=== PATIENT | female | born 1950 | race Hispanic/Latino ===

== ENCOUNTER → 2017-07-23 | Outpatient (CLI) | payer OTHER ==
[~2017-07-23] MED LIST: ACET-2743 PO; CEPH-578 PO; GLIP10TA9 PO; METF-527 PO; OMEG1CAP31 PO; TAMS0.4C32 PO
== END | disposition home or self-care (01) ==
LOC: OIH 15:08
PROVIDERS: ATTEND Family Medicine
DX: J44.1 Chronic obstructive pulmonary disease with (acute) exacerbation (principal)
CPT/HCPCS: 71046

== ENCOUNTER → 2017-10-27 | Outpatient (CLI) | payer OTHER | END | disposition home or self-care (01) | LOC: OIH 15:27 | PROVIDERS: ATTEND Family Medicine | DX: M17.11 Unilateral primary osteoarthritis, right knee (principal) | CPT/HCPCS: 73562 ==

== ENCOUNTER → 2019-04-04 | Outpatient (CLI) | payer OTHER | END | disposition home or self-care (01) | LOC: RAH 08:45 | PROVIDERS: ATTEND Family Medicine | DX: Z12.31 Encounter for screening mammogram for malignant neoplasm of breast (principal); I07.1 Rheumatic tricuspid insufficiency; I25.2 Old myocardial infarction | CPT/HCPCS: 77067; 93306 ==

== ENCOUNTER → 2019-06-07 | Outpatient (CLI) | payer OTHER | END | disposition home or self-care (01) | LOC: OIH 09:16 | PROVIDERS: ATTEND Family Medicine | DX: S20.211A Contusion of right front wall of thorax, initial encounter (principal); M19.011 Primary osteoarthritis, right shoulder; X58.XXXA Exposure to other specified factors, initial encounter; Y93.89 Activity, other specified; Y92.89 Other specified places as the place of occurrence of the external cause; Y99.8 Other external cause status | CPT/HCPCS: 71046; 73030 ==

== ENCOUNTER → 2020-11-23 | Outpatient (CLI) | payer OTHER | END | disposition home or self-care (01) | LOC: RAH 09:20 | PROVIDERS: ATTEND Family Medicine | DX: Z12.31 Encounter for screening mammogram for malignant neoplasm of breast (principal) | CPT/HCPCS: 77067 ==

== ENCOUNTER 2021-04-03 17:34 | Inpatient (IN) | payer OTHER ==
[~2021-04-03] VITALS: Ht 154.9 cm; Wt 65.9 kg
[2021-04-03] MEDS ORDERED: MORPHINE 4 MG SYG IV STA (19:28)
[2021-04-03] MEDS ORDERED: DEXTROSE 50%-WATER 50 ML DISP.SYRIN IV PRN (21:00)
[2021-04-03] MEDS ORDERED: NITROGLYCERIN 0.4 MG SL TAB SL PRN (21:00)
[2021-04-03] MEDS ORDERED: ACETAMINOPHEN 325 MG TAB PO PRN ×2 (21:00)
[2021-04-03] MEDS ORDERED: LABETALOL 20MG SYG IV PRN (21:00)
[2021-04-03] MEDS ORDERED: MORPHINE 2 MG SYG IV PRN (21:00)
[2021-04-03] MEDS ORDERED: ZOLPIDEM TARTRATE 5 MG TAB PO PRN (21:00)
[2021-04-03] MEDS ORDERED: GLUCAGON 1MG KIT 1 MG ML IM PRN (21:00)
[2021-04-03] MEDS ORDERED: ONDANSETRON 4MG INJ IV PRN (21:00)
[2021-04-03 21:46] LABS: BASOPHILS % (AUTO) 0.4 % (0.0-5.0); EOSINOPHILS % (AUTO) 0.3 % (0.0-8.0); HEMATOCRIT 30.4 % (36-48); LYMPHOCYTES % (AUTO) 14.8 % (21.0-51.0); MEAN CORPUSCULAR HEMOGLOBIN 29.3 pg (27.0-33.0); MEAN CORPUSCULAR HGB CONC 33.9 g/dL (32.0-36.0); MEAN CORPUSCULAR VOLUME 86.6 fL (79-99); MONOCYTES % (AUTO) 7.3 % (3.0-13.0); NEUTROPHILS % (AUTO) 76.4 % (40.0-77.0); PLATELET COUNT (AUTO) 175 K/uL (130-400); RED BLOOD CELL COUNT(AUTO) 3.51 MIL/uL (4.00-5.50); RED CELL DISTRIBUTION WIDTH 13.2 % (11.0-15.5); WHITE BLOOD COUNT (AUTO) 12.4 K/uL (4.8-10.8)
[2021-04-03 22:00] LABS: INR 0.97 (0.85-1.15); PROTHROMBIN TIME 10.6 SEC (9.6-11.6)
[2021-04-03 22:03] LABS: B-TYPE NATRIURETIC PEPTIDE 50 pg/mL (0-100); POTASSIUM 5.5 mmol/L (3.5-5.1)
[2021-04-03 22:07] LABS: BILIRUBIN,TOTAL 0.3 mg/dL (0.2-1.0); TOTAL PROTEIN, SERUM 6.3 g/dL (6.0-8.3)
[2021-04-03 22:29] VITALS: BP 139/64
[2021-04-04] MEDS: HYDROMORPHONE 0.5 MG SYG (0.5MG/0.5ML) IV PRN ×3 (03:23→16:29)
[2021-04-04] MEDS: 0.9%NACL 1000ML 1,000 ML IV SCH ×2 (03:24→10:20)
[2021-04-04 04:25] VITALS: BP 131/62
[2021-04-04 08:12] VITALS: BP 126/50
[2021-04-04] MEDS: FAMOTIDINE 20MG VIAL IV SCH (08:52)
[2021-04-04 10:01] LABS: HEMATOCRIT 34.1 % (36-48); MEAN CORPUSCULAR HEMOGLOBIN 29.4 pg (27.0-33.0); MEAN CORPUSCULAR HGB CONC 33.1 g/dL (32.0-36.0); MEAN CORPUSCULAR VOLUME 88.8 fL (79-99); PLATELET COUNT (AUTO) 174 K/uL (130-400); RED BLOOD CELL COUNT(AUTO) 3.84 MIL/uL (4.00-5.50); RED CELL DISTRIBUTION WIDTH 13.3 % (11.0-15.5)
[2021-04-04 10:12] LABS: CREATININE 0.6 mg/dL (0.5-1.5); POTASSIUM 4.7 mmol/L (3.5-5.1)
[2021-04-04 10:31] LABS: LYMPHOCYTES % (MANUAL) 27 % (22-44); MONOCYTES % (MANUAL) 4 % (2-9); SEGMENTED NEUTROPHILS % 69 % (40-70)
[2021-04-04 10:32] LABS: MAN.DIFF COMMENT-IMPRESSION MANUAL DIFFERENTIAL; PLATELET MORPHOLOGY COMMENT ADEQUATE
[2021-04-04 11:06] VITALS: BP 130/53
[2021-04-04 11:17] LABS: APPEARANCE,URINE Clear (CLEAR); BILIRUBIN,URINE Negative (NEGATIVE); COLOR,URINE Yellow (YELLOW); GLUCOSE, URINE (UA) Negative (NEGATIVE); KETONES,URINE Negative (NEGATIVE); LEUKOCYTE ESTERASE ,URINE Trace (NEGATIVE); NITRATE,URINE Positive (NEGATIVE); OCCULT BLOOD,URINE Negative (NEGATIVE); PROTEIN,URINE Negative (NEGATIVE)
[2021-04-04 11:37] LABS: BACTERIA,URINE Many /HPF (None Seen); RBC,URINE 0-1 /HPF (0-1); SQUAMOUS EPITHELIAL CELL,UR Rare /HPF (0-2); WBC,URINE 0-1 /HPF (0-1)
[2021-04-04] MEDS: CEFTRIAXONE 1G VIAL IVP SCH (16:29)
[2021-04-04 16:31] VITALS: BP 150/94
[2021-04-04 19:00] VITALS: BP 127/58
[2021-04-04] MEDS: SIMVASTATIN 20 MG TABLET PO SCH (20:44)
[2021-04-04] MEDS ORDERED: INSU200I4 SQ (20:49)
[2021-04-04] MEDS ORDERED: SIMV5TAB58 PO (20:49)
[2021-04-04] MEDS ORDERED: LISI5TAB21 PO (20:49)
[2021-04-04] MEDS ORDERED: OXYB10TA30 PO (20:49)
[2021-04-05] VITALS (7 sets, daily range): BP systolic 110–138; BP diastolic 57–71
[2021-04-05 03:44] LABS: HEMATOCRIT 35.5 % (36-48); MEAN CORPUSCULAR HEMOGLOBIN 29.2 pg (27.0-33.0); MEAN CORPUSCULAR HGB CONC 33.5 g/dL (32.0-36.0); MEAN CORPUSCULAR VOLUME 87.2 fL (79-99); RED BLOOD CELL COUNT(AUTO) 4.07 MIL/uL (4.00-5.50); RED CELL DISTRIBUTION WIDTH 12.8 % (11.0-15.5); WHITE BLOOD COUNT (AUTO) 7.9 K/uL (4.8-10.8)
[2021-04-05 03:56] LABS: INR 0.99 (0.85-1.15); PROTHROMBIN TIME 10.8 SEC (9.6-11.6)
[2021-04-05 03:57] LABS: PARTIAL THROMBOPLASTIN TIME 28.8 SEC (26.3-35.5)
[2021-04-05 03:59] LABS: CREATININE 0.6 mg/dL (0.5-1.5); POTASSIUM 4.6 mmol/L (3.5-5.1)
[2021-04-05] MEDS: HYDROMORPHONE 0.5 MG SYG (0.5MG/0.5ML) IV PRN ×4 (05:32→21:16)
[2021-04-05] MEDS: LISINOPRIL 10 MG TABLET PO SCH (09:00)
[2021-04-05] MEDS: 0.9%NACL 1000ML 1,000 ML IV SCH ×2 (09:25→13:00)
[2021-04-05] MEDS: FAMOTIDINE 20MG VIAL IV SCH (09:25)
[2021-04-05] MEDS: CEFTRIAXONE 1G VIAL IVP SCH (16:01)
[2021-04-05] MEDS ORDERED: GLUCAGON 1MG KIT 1 MG ML IM PRN (17:00)
[2021-04-05] MEDS ORDERED: DEXTROSE 50%-WATER 50 ML DISP.SYRIN IV PRN (17:00)
[2021-04-05] MEDS: INSULIN HUMULIN R 100 UNIT/ML 3ML SQ SCH (19:53)
[2021-04-05] MEDS: SIMVASTATIN 20 MG TABLET PO SCH (19:53)
[2021-04-06] VITALS (28 sets, daily range): BP systolic 91–156; BP diastolic 45–79
[2021-04-06] MEDS: 0.9%NACL 1000ML 1,000 ML IV SCH ×3 (00:22→16:28)
[2021-04-06] MEDS: LISINOPRIL 10 MG TABLET PO SCH (03:25)
[2021-04-06] MEDS: HYDROMORPHONE 0.5 MG SYG (0.5MG/0.5ML) IV PRN (04:21)
[2021-04-06 05:18] LABS: HEMATOCRIT 36.3 % (36-48); MEAN CORPUSCULAR HEMOGLOBIN 29.3 pg (27.0-33.0); MEAN CORPUSCULAR HGB CONC 33.6 g/dL (32.0-36.0); MEAN CORPUSCULAR VOLUME 87.1 fL (79-99); RED BLOOD CELL COUNT(AUTO) 4.17 MIL/uL (4.00-5.50); RED CELL DISTRIBUTION WIDTH 12.8 % (11.0-15.5); WHITE BLOOD COUNT (AUTO) 9.7 K/uL (4.8-10.8)
[2021-04-06 05:34] LABS: CREATININE 0.6 mg/dL (0.5-1.5); POTASSIUM 4.4 mmol/L (3.5-5.1)
[2021-04-06] MEDS: INSULIN HUMULIN R 100 UNIT/ML 3ML SQ SCH ×4 (06:05→19:46)
[2021-04-06] MEDS: FAMOTIDINE 20MG VIAL IV SCH (09:00)
[2021-04-06] MEDS: CEFAZOLIN SODIUM 1 GM VIAL ONE ×2 (10:10→10:35)
[2021-04-06] MEDS ORDERED: SUCCINYLCHOLINE CHLORIDE 20 MG/ML 10 ML VIAL ONE (10:14)
[2021-04-06] MEDS ORDERED: LIDOCAINE PF 100MG/5ML (2%) SYRINGE 5ML ONE (10:14)
[2021-04-06] MEDS ORDERED: PROPOFOL 10 MG/ML 20ML VIAL IV ONE (10:14)
[2021-04-06] MEDS ORDERED: KETAMINE 50MG/ML SYRINGE 50 MG/ML DISP.SYRIN IV ONE (10:17)
[2021-04-06] MEDS ORDERED: ROCURONIUM 10MG/1ML SYR 10 MG/ML ML ONE (10:26)
[2021-04-06] MEDS ORDERED: VANCOMYCIN 1G VIAL ONE (10:51)
[2021-04-06] MEDS ORDERED: TRANEXAMIC ACID 1000MG/10ML ONE (10:51)
[2021-04-06] MEDS ORDERED: GLYCOPYRROLATE 1 MG/5 ML SYRINGE ONE (11:23)
[2021-04-06] MEDS ORDERED: NEOSTIGMINE 5MG/5ML SYR IV ONE (11:23)
[2021-04-06] MEDS ORDERED: ONDANSETRON 4MG INJ ONE (11:24)
[2021-04-06] MEDS ORDERED: FERROUS FUMARATE 324 MG TABLET PO PRN (12:00)
[2021-04-06] MEDS ORDERED: DiphenhydrAMINE HCL 50 MG/ML VIAL IVP PRN (12:00)
[2021-04-06] MEDS ORDERED: POTASSIUM CHLORIDE 20MEQ/100ML 100 ML IV PRN (12:00)
[2021-04-06] MEDS ORDERED: MEPERIDINE-PF 25 MG/ML SYG ONE ×2 (12:07→12:30)
[2021-04-06] MEDS: CEFTRIAXONE 1G VIAL IVP SCH (16:28)
[2021-04-06] MEDS: CEFAZOLIN SODIUM 1 GM VIAL IVP SCH ×2 (16:28→23:38)
[2021-04-06] MEDS: KETOROLAC 15MG/ML VIAL (15MG/ML) IV PRN (17:21)
[2021-04-06] MEDS: SIMVASTATIN 20 MG TABLET PO SCH (19:45)
[2021-04-06] MEDS: ACETAMINOPHEN WITH CODEINE 1 TAB TAB PO PRN (19:45)
[2021-04-06] MEDS: LACTULOSE 20 GM/30 ML UDCUP PO PRN (23:38)
[2021-04-07] MEDS: KETOROLAC 15MG/ML VIAL (15MG/ML) IV PRN ×2 (02:05→13:05)
[2021-04-07 03:29] VITALS: BP 127/64
[2021-04-07] MEDS: LISINOPRIL 10 MG TABLET PO SCH (05:17)
[2021-04-07] MEDS: 0.9%NACL 1000ML 1,000 ML IV SCH (05:17)
[2021-04-07] MEDS: INSULIN HUMULIN R 100 UNIT/ML 3ML SQ SCH ×4 (05:22→21:07)
[2021-04-07 05:37] LABS: HEMATOCRIT 29.8 % (36-48); MEAN CORPUSCULAR HEMOGLOBIN 29.6 pg (27.0-33.0); MEAN CORPUSCULAR HGB CONC 32.6 g/dL (32.0-36.0); MEAN CORPUSCULAR VOLUME 90.9 fL (79-99); RED BLOOD CELL COUNT(AUTO) 3.28 MIL/uL (4.00-5.50); RED CELL DISTRIBUTION WIDTH 13.2 % (11.0-15.5); WHITE BLOOD COUNT (AUTO) 8.8 K/uL (4.8-10.8)
[2021-04-07 06:17] LABS: CREATININE 0.8 mg/dL (0.5-1.5); POTASSIUM 4.2 mmol/L (3.5-5.1)
[2021-04-07] MEDS: FAMOTIDINE 20MG VIAL IV SCH (07:57)
[2021-04-07] MEDS: DOCUSATE SODIUM 100 MG CAP PO SCH ×2 (07:57→19:25)
[2021-04-07] MEDS: ACETAMINOPHEN WITH CODEINE 1 TAB TAB PO PRN ×2 (07:57→21:06)
[2021-04-07] MEDS: LACTULOSE 20 GM/30 ML UDCUP PO PRN ×2 (07:57→19:26)
[2021-04-07 08:00] VITALS: BP 107/46
[2021-04-07 12:00] VITALS: BP 104/47
[2021-04-07] MEDS: CEFTRIAXONE 1G VIAL IVP SCH (13:05)
[2021-04-07 16:00] VITALS: BP 128/56
[2021-04-07] MEDS: SIMVASTATIN 20 MG TABLET PO SCH (19:26)
[2021-04-07 20:28] VITALS: BP 114/58
[2021-04-07 23:52] VITALS: BP 134/50
[2021-04-08 03:05] VITALS: BP 144/73
[2021-04-08 04:06] LABS: HEMATOCRIT 26.4 % (36-48); MEAN CORPUSCULAR HEMOGLOBIN 29.8 pg (27.0-33.0); MEAN CORPUSCULAR VOLUME 90.4 fL (79-99); RED BLOOD CELL COUNT(AUTO) 2.92 MIL/uL (4.00-5.50); RED CELL DISTRIBUTION WIDTH 13.1 % (11.0-15.5); WHITE BLOOD COUNT (AUTO) 6.6 K/uL (4.8-10.8)
[2021-04-08 04:25] LABS: CREATININE 0.7 mg/dL (0.5-1.5); POTASSIUM 4.5 mmol/L (3.5-5.1)
[2021-04-08] MEDS: LISINOPRIL 10 MG TABLET PO SCH (05:47)
[2021-04-08] MEDS: 0.9%NACL 1000ML 1,000 ML IV SCH ×2 (05:47→07:40)
[2021-04-08] MEDS: KETOROLAC 15MG/ML VIAL (15MG/ML) IV PRN (05:47)
[2021-04-08] MEDS: INSULIN HUMULIN R 100 UNIT/ML 3ML SQ SCH ×3 (05:48→16:34)
[2021-04-08 07:30] VITALS: BP 151/62
[2021-04-08] MEDS: ACETAMINOPHEN WITH CODEINE 1 TAB TAB PO PRN ×2 (09:45→16:33)
[2021-04-08] MEDS: DOCUSATE SODIUM 100 MG CAP PO SCH (09:45)
[2021-04-08] MEDS: LACTULOSE 20 GM/30 ML UDCUP PO PRN (09:46)
[2021-04-08] MEDS: FAMOTIDINE 20MG VIAL IV SCH (09:46)
[2021-04-08 11:00] VITALS: BP 122/64
[2021-04-08] MEDS: CEFTRIAXONE 1G VIAL IVP SCH (13:42)
[2021-04-08 16:00] VITALS: BP 134/53
[2021-04-08] MEDS ORDERED: APIXABAN 2.5 MG TABLET PO SCH (21:00)
== END 2021-04-08 18:00 | DRG 522 ==
LOC: EDH 17:34 → EDHIP 20:47 → OBSVTOIN 20:47 → 4AH 22:02
PROVIDERS: ADMIT Internal Medicine Critical Care Medicine; ATTEND Internal Medicine Critical Care Medicine
PROC: 0SRS01Z Replacement of Left Hip Joint, Femoral Surface with Metal Synthetic Substitute, Open Approach (ICD-10-PCS; principal; 2021-04-06 10:48)
DX: S72.002A Fracture of unspecified part of neck of left femur, initial encounter for closed fracture (principal); N39.0 Urinary tract infection, site not specified; M19.90 Unspecified osteoarthritis, unspecified site; I10 Essential (primary) hypertension; E11.9 Type 2 diabetes mellitus without complications; I44.0 Atrioventricular block, first degree; Z20.822 Contact with and (suspected) exposure to COVID-19; E78.5 Hyperlipidemia, unspecified; W01.0XXA Fall on same level from slipping, tripping and stumbling without subsequent striking against object, initial encounter; Y93.89 Activity, other specified; Y92.008 Other place in unspecified non-institutional (private) residence as the place of occurrence of the external cause; Y99.8 Other external cause status; Z90.710 Acquired absence of both cervix and uterus; Z90.49 Acquired absence of other specified parts of digestive tract; Z79.4 Long term (current) use of insulin; Z79.899 Other long term (current) drug therapy; Z82.49 Family history of ischemic heart disease and other diseases of the circulatory system
CPT/HCPCS: 36415; 71045; 73502; 73503; 80048; 80053; 81001; 82550; 82948; 83880; 84484; 85025; 85027; 85610; 85730; 86850; 86900; 86901; 87077; 87088; 87186; 87635; 88305; 88311; 93005; 97039; C1776; G0378; J0330; J0690; J0696; J1170; J1815; J1885; J2001; J2175; J2270; J2405; J2704; J2710; J3370; J3490; J7030

== ENCOUNTER 2023-03-03 17:32 | Emergency (ER) | payer OTHER ==
[~2023-03-03] VITALS: Ht 152.4 cm; Wt 72.6 kg
[~2023-03-03 17:32] MED LIST changes: -CEPH-578 PO; -GLIP10TA9 PO; +INSU200I4 SQ; +LISI5TAB21 PO; -OMEG1CAP31 PO; +OXYB10TA30 PO; +SIMV5TAB58 PO; -TAMS0.4C32 PO
[2023-03-03 18:52] VITALS: BP 113/70; PULSE 75; RESP 18; O2SAT 98
== END 2023-03-03 18:53 | disposition home or self-care (01) ==
LOC: EDH 17:32
DX: S00.81XA Abrasion of other part of head, initial encounter (principal); S09.90XA Unspecified injury of head, initial encounter; E11.9 Type 2 diabetes mellitus without complications; I10 Essential (primary) hypertension; Z79.84 Long term (current) use of oral hypoglycemic drugs; Z79.899 Other long term (current) drug therapy; Z90.49 Acquired absence of other specified parts of digestive tract; W18.39XA Other fall on same level, initial encounter; Y93.01 Activity, walking, marching and hiking; Y92.89 Other specified places as the place of occurrence of the external cause; Y99.8 Other external cause status
CPT/HCPCS: 70450; 70486; 72125

== ENCOUNTER → 2023-03-20 | Outpatient (CLI) | payer OTHER | END | disposition home or self-care (01) | LOC: RAH 13:13 | PROVIDERS: ATTEND Family Medicine | DX: Z12.31 Encounter for screening mammogram for malignant neoplasm of breast (principal); Z00.01 Encounter for general adult medical examination with abnormal findings | CPT/HCPCS: 77067 ==

== ENCOUNTER 2023-06-27 15:44 | Emergency (ER) | payer OTHER ==
[~2023-06-27] VITALS: Ht 154.9 cm; Wt 77.1 kg
[2023-06-27 16:10] LABS: RAPID GROUP A STREP negative (NEGATIVE)
[2023-06-27 16:17] LABS: SARS-CoV-2, RNA, NAAT POSITIVE SARS CoV-2 (NEGATIVE)
[2023-06-27 16:23] LABS: INFLUENZA TYPE A Negative For Type A (NEGATIVE); INFLUENZA TYPE B Negative For Type B (NEGATIVE)
[2023-06-27 17:20] LABS: APPEARANCE,URINE CLOUDY (CLEAR); BILIRUBIN,URINE NEGATIVE (NEGATIVE); COLOR,URINE YELLOW (YELLOW); GLUCOSE, URINE (UA) 300 mg/dL (NEGATIVE); KETONES,URINE NEGATIVE (NEGATIVE); LEUKOCYTE ESTERASE ,URINE 250 Leu/uL (NEGATIVE); NITRATE,URINE 2+ (NEGATIVE); OCCULT BLOOD,URINE MODERATE (NEGATIVE); PH,URINE 5.5 (5.0-8.0); PROTEIN,URINE 200 mg/dL (NEGATIVE); UROBILINOGEN,URINE 0.2 mg/dL (0.2-1.0)
[2023-06-27 17:31] LABS: ADD UA MICROSCOPIC YES
[2023-06-27 17:33] LABS: BACTERIA,URINE RARE /HPF (None Seen); MUCUS,URINE RARE LPF (None Seen); SQUAMOUS EPITHELIAL CELL,UR RARE /HPF (0-2); WBC,URINE 51-100 /HPF (0-1)
[2023-06-27] MEDS ORDERED: BENZ200C53 PO (17:35)
[2023-06-27] MEDS ORDERED: CEPH500B PO (17:35)
[2023-06-27 17:46] VITALS: BP 139/87; PULSE 69; RESP 20; O2SAT 97
== END 2023-06-27 17:48 | disposition home or self-care (01) ==
LOC: EDH 15:44
DX: U07.1 COVID-19 (principal); B34.9 Viral infection, unspecified; N39.0 Urinary tract infection, site not specified; I10 Essential (primary) hypertension; E11.9 Type 2 diabetes mellitus without complications; Z90.710 Acquired absence of both cervix and uterus; Z98.890 Other specified postprocedural states; Z90.49 Acquired absence of other specified parts of digestive tract; Z79.84 Long term (current) use of oral hypoglycemic drugs; Z79.899 Other long term (current) drug therapy
CPT/HCPCS: 99284; 71045; 87635; 87077; 87088; 87186; 87880; 87804 ×2; 81001; C9803

== ENCOUNTER → 2024-03-21 | Outpatient (CLI) | payer OTHER ==
[~2024-03-21] MED LIST changes: +BENZ200C53 PO; +CEPH500B PO
== END | disposition home or self-care (01) ==
LOC: RAH 08:38
PROVIDERS: ATTEND Family Medicine
DX: Z12.31 Encounter for screening mammogram for malignant neoplasm of breast (principal); R92.333 Mammographic heterogeneous density, bilateral breasts
CPT/HCPCS: 77067

== ENCOUNTER 2024-07-18 06:19 | Emergency (ER) | payer OTHER ==
[~2024-07-18] VITALS: Ht 154.9 cm; Wt 69.2 kg
[2024-07-18 07:18] LABS: COVID19 (SARS ANTIGEN RAPID) PRESUMPTIVE NEGATIVE (NEGATIVE); INFLUENZA TYPE A Negative For Type A (NEGATIVE); INFLUENZA TYPE B Negative For Type B (NEGATIVE)
--- NOTE | 2024-07-18 07:51 | EKG ---
[facility] Test Date: 2024-07-18 Test Time: 07:45:22 Pat Name: ACE TAYLOR Department: ED Room: Gender: F [employer]: [id number] : 1950 Requested By: JOE KAUR Order Number: [id number] Reading MD: Sofi Martins Measurements Intervals [place] Rate: 67 P: 56 NV: 214 QRS: 30 QRSD: 73 T: 70 QT: 373 QTc: 393 Interpretive Statements Sinus rhythm Borderline prolonged NV interval Low voltage, extremity leads Compared to ECG 04/04/2021 13:24:40 Low QRS voltage now present Myocardial infarct finding no longer present Electronically Signed On 07-18-2024 09:18:18 [employer] by Sofi Martins Please click the below link to view image of tracing.
[2024-07-18] MEDS: Solu-medROL 125MG VIAL IVP ONE (08:00)
[2024-07-18] MEDS: 0.9% NACL 500ML IV.SOLN 500 ML IV ONE (08:01)
[2024-07-18 08:04] LABS: BASOPHILS # (AUTO) 0.06 K/uL (0.00-0.20); BASOPHILS % (AUTO) 0.9 % (0.0-5.0); HEMATOCRIT 36.8 % (36-48); IMMATURE GRANULOCYTE ABSOLUTE 0.04 K/uL (0-1); LYMPHOCYTES # (AUTO) 1.7 K/uL (1.0-4.8); LYMPHOCYTES % (AUTO) 25.5 % (21.0-51.0); MEAN CORPUSCULAR HEMOGLOBIN 29.1 pg (27.0-33.0); MEAN CORPUSCULAR HGB CONC 33.4 g/dL (32.0-36.0); MEAN CORPUSCULAR VOLUME 87.2 fL (79-99); MONOCYTES # (AUTO) 0.5 K/uL (0.1-1.0); MONOCYTES % (AUTO) 7.1 % (3.0-13.0); NEUTROPHILS # (AUTO) 4.2 K/uL (1.8-7.7); NEUTROPHILS % (AUTO) 62.9 % (40.0-77.0); PLATELET COUNT (AUTO) 193 K/uL (130-400); RED BLOOD CELL COUNT(AUTO) 4.22 MIL/uL (4.00-5.50); RED CELL DISTRIBUTION WIDTH 12.8 % (11.0-15.5); WHITE BLOOD COUNT (AUTO) 6.6 K/uL (4.8-10.8)
[2024-07-18 08:12] VITALS: PULSE 70; RESP 18
[2024-07-18] MEDS: IpraTROPium/alBUTERol SULFATE 3 ML SOLUTION IH ONE (08:12)
--- NOTE | 2024-07-18 08:12 | ERN ---
ED Note History of Present Illness Stated Complaint: COUGH Chief Complaint: Cough Time Seen by MD: 07:29 Dictation: 73-year-old female presents to the ED for evaluation of cough onset 1 week ago. Patient reports shortness for breath, nasal congestion, rhinorrhea, but denies any fever, nausea, vomiting or diarrhea at this time. Allergies: Coded Allergies: No Known Drug Allergies (Unverified Allergy, Unknown, 04/03/21) Penicillins (Unverified Allergy, Unknown, 07/18/24) Uncoded Allergies: NKDA (Allergy, Unknown, 05/19/15) Home Meds Active Scripts Albuterol Sulfate (Ventolin Hfa/Proventil Hfa/Proair Hfa) 90 Mcg Puff, 1-2 PUFF IH Q4H PRN for SHORTNESS OF BREATH for 5 Days, #1 INH 0 Refills PHARMACY TO DISPENSE 1 INHALER FOR USE Prov:JOE KAUR MD 07/18/24 Azithromycin (Azithromycin) 250 Mg Tablet, 250 MG PO AD for cough for 5 Days, #6 TAB Prov:JOE KAUR MD 07/18/24 Benzonatate (Benzonatate) 200 Mg Capsule, 200 MG PO TID PRN for COUGH for 14 Days, #42 CAP Prov:ELINA CHASE V HYDROGENATION OPERATOR 06/27/23 Cephalexin Monohydrate (Keflex) 500 Mg Cap, 500 MG PO TID for 7 Days, #21 CAP Prov:ELINA CHASE V HYDROGENATION OPERATOR 06/27/23 Reported Medications Insulin Degludec (Tresiba Flextouch U-200) 200 Unit/1 Ml Insuln.pen, 34 UNIT SQ DAILYBKFST, SYRINGE 04/04/21 Lisinopril (Lisinopril) 5 Mg Tablet, 5 MG PO DAILY, TAB 04/04/21 Simvastatin (Simvastatin) 5 Mg Tablet, 5 MG PO HS, TAB 04/04/21 Oxybutynin Chloride (Oxybutynin Chloride ER) 10 Mg Tab.er.24, 10 MG PO DAILY 04/04/21 Metformin HCl (Metformin HCl ER) 1,000 Mg Tab.er.24, 1000 MG PO BID 05/21/15 Acetaminophen (Tylenol Extra Strength) 500 Mg Tablet, 500 MG PO BID, TAB 05/20/15 Past Medical History Past Medical History: Diabetes-Type II, Hypertension Surgical History: Hysterectomy, Cholecystectomy, Other Surgical History Other: LEFT HIP, BREAST CATARACT Family History: Negative Social History: Negative, Lives with family History: Not Applicable Review of System Dictation Constitutional: Negative for fever,chills, and weight loss Eyes: Negative for injury, pain,redness, and discharge ENT: Positive for nasal congestion, rhinorrhea Cardiovascular: Negative for chest pain, palpitations, and edema Respiratory: Positive for shortness a breath, cough Abdomen/GI: Negative for abdominal pain, nausea, vomiting, diarrhea, and constipation Back: Negative for injury and pain : Negative for injury, bleeding and discharge MS/Extremity: Negative for injury and deformity Skin: Negative for rash, and discoloration Neuro: Negative for headache, weakness, numbness, tingling, and seizure Psych: Negative for suicide ideation, homicidal ideation, and hallucinations Initial Vital Sign VS Vital Signs Date Time Temp Pulse Resp B/P (MAP) Pulse Ox O2 Delivery O2 Flow Rate FiO2 07/18/24 06:20 98.1 75 20 161/72 98 Room Air Physical Exam Dictation General: awake, alert, NAD Head/Face: Normocephalic, atraumatic Eyes: PERRL, EOMI, vision at baseline ENT: oral cavity clear, TMs clear, no signs of infection Neck: Trachea midline, supple, no nuchal rigidity Cardiovascular: RRR, normal S1/S2, No MRGs, no JVD Respiratory: no respiratory distress, mild wheeze on exam Abdomen: Soft, non-tender, non-distended, normal bowel sounds, no guarding or rebound. Skin: Warm, dry, normal turgor, no rash MS/Extremity: Pulses equal, no cyanosis, neurovascular intact, FROM Neuro: COAx4, GCS 15, strength 5/5, CN 2-12 intact, normal cerebellar exam, normal gait, Psych: Normal behavior, mood, and affect normal Results (Laboratory/Radiology) Laboratory/Radiology Laboratory Tests Test 07/18/24 06:43 07/18/24 07:58 Influenza Type A Antigen Negative For Type A Influenza Type B Antigen Negative For Type B SARS-CoV-2 Antigen (Rapid) PRESUMPTIVE NEGATIVE White Blood Count 6.6 K/uL (4.8-10.8) Red Blood Count 4.22 MIL/uL (4.00-5.50) Hemoglobin 12.3 g/dL (12.0-16.0) Hematocrit 36.8 % (36-48) Mean Corpuscular Volume 87.2 fL (79-99) Mean Corpuscular Hemoglobin 29.1 pg (27.0-33.0) Mean Corpuscular Hemoglobin Concent 33.4 g/dL (32.0-36.0) Red Cell Distribution Width 12.8 % (11.0-15.5) Platelet Count 193 K/uL (130-400) Mean Platelet Volume 10.1 fL (7.5-10.5) Immature Granulocyte % (Auto) 0.6 % (0-1) Neutrophils (%) (Auto) 62.9 % (40.0-77.0) Lymphocytes (%) (Auto) 25.5 % (21.0-51.0) Monocytes (%) (Auto) 7.1 % (3.0-13.0) Eosinophils (%) (Auto) 3.0 % (0.0-8.0) Basophils (%) (Auto) 0.9 % (0.0-5.0) Neutrophils # (Auto) 4.2 K/uL (1.8-7.7) Lymphocytes # (Auto) 1.7 K/uL (1.0-4.8) Monocytes # (Auto) 0.5 K/uL (0.1-1.0) Eosinophils # (Auto) 0.20 K/uL (0.00-0.70) Basophils # (Auto) 0.06 K/uL (0.00-0.20) Absolute Immature Granulocyte (auto 0.04 K/uL (0-1) Nucleated Red Blood Cells 0.0 % (0.0-0.19) Sodium Level 139 mmol/L (136-145) Potassium Level 4.8 mmol/L (3.5-5.1) Chloride Level 105 mmol/L (101-111) Carbon Dioxide Level 28 mmol/L (21-32) Blood Urea Nitrogen 20 mg/dL (7-18) H Creatinine 0.6 mg/dL (0.5-1.0) Glomerular Filtration Rate Calc 94 mL/min (>90) Random Glucose 183 mg/dL (70-105) H Total Calcium 8.5 mg/dL (8.5-10.1) Total Creatine Kinase 109 U/L (21-232) # Troponin I High Sensitivity 6 ng/L (4-50) Labs Reviewed?: Yes EKG Comment: EKG 07/18/2024 time 7:45 a.m. ventricular rate 67, NM 214, QRS D 73, QT 373. Sinus rhythm, borderline prolonged NM interval, low voltage extremity leads. No STEMI X-RAY Comment: SHAQUILLE: cough ORDERING PHYSICIAN: PIERRE TELLO DO PROCEDURE: CXR1VW - CHEST 1VW CHEST 1VW HISTORY: Cough COMPARISON: 06/27/2023 FINDINGS: A frontal projection of the chest was obtained. No acute pulmonary infiltrates is seen. The heart is borderline enlarged. Degenerative changes are seen. No evidence of aortic calcification is seen. IMPRESSION: 1. No acute pulmonary infiltrate is seen. DICTATED BY: MAGNOLIA GRIMM MD DATE: 07/18/24847 ED Course ED Course Orders Procedure Category Date Status Time Covid19 (Sars Antigen LAB 07/18/24 Complete Rapid) 06:28 Influenza Type A & B, LAB 07/18/24 Complete Rapid 06:28 Chest 1vw RAD 07/18/24 Resulted 06:28 Cbc With Differential LAB 07/18/24 Complete 07:35 Basic Metabolic Panel LAB 07/18/24 Complete 07:35 Creatine Kinase, Total LAB 07/18/24 Complete 07:35 12 Lead Ekg Tracing- EKG 07/18/24 Resulted Technical 07:35 Troponin I High LAB 07/18/24 Complete Sensitivity 07:35 Methylprednisolone PHA 07/18/24 Complete Succ 125mg (Solu-Medr 08:00 Ipratropium/Albuterol PHA 07/18/24 Complete Neb (Duoneb) 08:00 0.9% Nacl 500ml PHA 07/18/24 Complete Iv.Soln (Ns 500ml 08:00 Current Medications Medications (Trade) Dose Ordered Sig/Sandie Route PRN Reason Start Time Stop Time Status Last Admin Dose Admin Albuterol (DUOneb) 1 udvial ONCE ONCE IH 07/18/24 08:00 07/18/24 08:01 DC 07/18/24 08:12 Methylprednisolone Sodium Succinate (Solu-medROL 125MG) 125 mg ONCE ONCE IVP 07/18/24 08:00 07/18/24 08:01 DC 07/18/24 08:00 Sodium Chloride 500 ml @ 0 mls/hr ONCE ONCE IV 07/18/24 08:00 07/18/24 08:01 DC 07/18/24 08:01 Vital Signs Date Time Temp Pulse Resp B/P (MAP) Pulse Ox O2 Delivery O2 Flow Rate FiO2 07/18/24 08:12 70 18 07/18/24 06:20 98.1 75 20 161/72 98 Room Air Medical Decision Making MDM MDM: Differential diagnosis: Viral syndrome, bronchitis Risk of complication and/or morbidity or mortality of patient management: None Medications-Per medication reconciliation Need for hospitalization: Patient does not meet criteria for hospitalization. Need for emergency major/minor surgery: No There are no social concerns with this patient. Prescription drug management Prescriptions will include symptomatic care I independently interpreted the test that were performed, results were reviewed by me and considered findings on radiology if ordered. DX & DISP Disposition: Discharge Departure Impression: Primary Impression: Acute bronchitis Condition: Stable Scripts Albuterol Sulfate (Ventolin Hfa/Proventil Hfa/Proair Hfa) 90 Mcg Puff 1-2 PUFF IH Q4H PRN for SHORTNESS OF BREATH for 5 Days, #1 INH 0 Refills PHARMACY TO DISPENSE 1 INHALER FOR USE Prov: JOE KAUR MD 07/18/24 Azithromycin (Azithromycin) 250 Mg Tablet 250 MG PO AD for cough for 5 Days, #6 TAB Prov: JOE KAUR MD 07/18/24 Referrals: DANA WALTON MD (PCP) JOE KAUR MD Jul 18, 2024 08:12
[2024-07-18 08:22] LABS: CREATININE 0.6 mg/dL (0.5-1.0); POTASSIUM 4.8 mmol/L (3.5-5.1)
--- NOTE | 2024-07-18 08:52 | HMCIMG ---
CHEST 1VW HISTORY: Cough COMPARISON: 06/27/2023 FINDINGS: A frontal projection of the chest was obtained. No acute pulmonary infiltrates is seen. The heart is borderline enlarged. Degenerative changes are seen. No evidence of aortic calcification is seen. IMPRESSION: 1. No acute pulmonary infiltrate is seen.
[2024-07-18] MEDS ORDERED: AZIT250T9 PO (09:26)
[2024-07-18] MEDS ORDERED: ALBUHFA IH (09:26)
[2024-07-18 09:30] VITALS: BP 158/92; PULSE 78; RESP 20; TEMP 97.9; O2SAT 96
== END 2024-07-18 09:37 | disposition home or self-care (01) ==
LOC: EDH 06:19
DX: J20.9 Acute bronchitis, unspecified (principal); E11.9 Type 2 diabetes mellitus without complications; I10 Essential (primary) hypertension; Z79.84 Long term (current) use of oral hypoglycemic drugs; Z79.899 Other long term (current) drug therapy; Z88.0 Allergy status to penicillin; Z90.49 Acquired absence of other specified parts of digestive tract; Z90.710 Acquired absence of both cervix and uterus; Z20.822 Contact with and (suspected) exposure to COVID-19; Z98.890 Other specified postprocedural states
CPT/HCPCS: 99285; 96374; 71045; 87426; 82550; 84484; 80048; 85025; 87804 ×2; 36415; 93005; 94640; J2919; J7040

== ENCOUNTER 2024-09-24 20:09 | Emergency (ER) | payer OTHER ==
[~2024-09-24] VITALS: Ht 152.4 cm; Wt 68.0 kg
[~2024-09-24 20:09] MED LIST changes: +ALBUHFA IH; +AZIT250T9 PO
--- NOTE | 2024-09-24 21:30 | HMCIMG ---
CT HEAD WITHOUT CONTRAST INDICATION: Fall TECHNIQUE: Noncontrast axial helical CT images from the vertex through the skull base using 5 mm slice thickness without contrast material. Coronal and sagittal reconstructions were also included. Dose reduction techniques was used using integrated, automated and adaptive dose reduction exposure control. CT was performed with one or more of the following dose reduction techniques: Automated exposure control, adjustment of the mA and/or kV according to patient size, or use of iterative reconstruction technique. COMPARISON: None FINDINGS: Scattered and coalescent subcortical and periventricular white matter low attenuating areas likely represent residual of chronic small vessel arteriopathy and/or remote vascular insult. Generalized mild cerebral cortical atrophy is present.. No evidence for abnormal extra-axial fluid collections or masses. The ventricles and sulci are normal in size and configuration. No evidence for intracranial parenchymal, epidural, or subdural hemorrhage, mass effect or midline shift. The mooney-white matter differentiation is well preserved. No secondary evidence to suggest acute ischemia. Mild calcific plaque is present along the dimas of the cavernous segments of both internal carotid arteries. The brainstem and cerebellum appear normal. The visualized orbits appear unremarkable. The visible paranasal sinuses and mastoid air cells are clear. The calvarium appears normal. IMPRESSION: Chronic white matter ischemic changes, mild brain atrophy, and arteriosclerotic disease as described, without acute component.
--- NOTE | 2024-09-24 21:36 | HMCIMG ---
CT CHEST WITHOUT CONTRAST. CT ABDOMEN WITHOUT CONTRAST. CT PELVIS WITHOUT CONTRAST INDICATION: Left rib and hip pain TECHNIQUE: Routine 5 mm thick axial images were acquired from the thoracic inlet through the pelvis without contrast. CT was performed with one or more of the following dose reduction techniques: Automated exposure control, adjustment of the mA and/or kV according to patient size, or use of iterative reconstruction technique. COMPARISON: None FINDINGS: CT CHEST: A few calcific nodules within the left greater than right breast. The heart size is normal. Coronary arterial wall calcific plaque noted. No pericardial effusion noted. Mild calcific plaque is present along the aortic arch and thoracic aortic dimas without aneurysmal dilation. The trachea and airways are patent. No evidence for pulmonary nodule, consolidation, cavitary lesion, or other abnormal pulmonary parenchymal opacity. No axillary, hilar, or mediastinal lymphadenopathy. No pleural effusion or pneumothorax identified. Slightly displaced lateral left seventh rib fracture. Right ribs and sternum are intact. CT ABDOMEN: The liver is normal in size and smooth in contour without biliary duct dilation. The spleen is normal in size.. The gallbladder his absent. The pancreas appears normal without pancreatic duct dilation. The adrenal glands appear normal. Right kidney appears normal. 4.2 cm simple left renal cyst. No evidence for intra-abdominal free air or free or organized fluid collection. Mild calcific plaque is noted along the abdominal aortic and iliac vessel dimas without aneurysmal dilation. CT PELVIS: Streak artifact from total left hip prosthesis. No evidence for free air or free or organized pelvic fluid collection. No significant pelvic adenopathy detected. Moderate stool burden. Terminal ileum also appears normal. The appendix appears normal. The urinary bladder appears unremarkable. Visible osseous structures are intact. IMPRESSION: Slightly displaced lateral left seventh rib fracture without evidence for left hip fracture. A few calcific nodules within the left greater than right breast. Arteriosclerotic disease as described.
--- NOTE | 2024-09-24 21:57 | ERN ---
General Chief Complaint: Mechanical Fall Stated Complaint: FALL Time Seen by MD: 20:11 Time Seen by Midlevel: 20:11 Source: patient History of Present Illness Initial Comments The patient is a 73-year-old female presenting to the emergency department following a mechanical ground level fall that occurred approximately 1 hour prior to arrival. Patient reports slipping and falling onto water. She reports landing on her left side. She does report hitting the left side of her head. Her main concern is that she was having left-sided chest wall pain. The pain is worse with deep inspiration. Denies any other symptoms. Denies being on any blood thinners Allergies: Coded Allergies: No Known Drug Allergies (Unverified Allergy, Unknown, 04/03/21) Penicillins (Unverified Allergy, Unknown, 07/18/24) Uncoded Allergies: NKDA (Allergy, Unknown, 05/19/15) Home Meds Active Scripts Albuterol Sulfate (Ventolin Hfa/Proventil Hfa/Proair Hfa) 90 Mcg Puff, 1-2 PUFF IH Q4H PRN for SHORTNESS OF BREATH for 5 Days, #1 INH 0 Refills PHARMACY TO DISPENSE 1 INHALER FOR USE Prov:JOE KAUR MD 07/18/24 Azithromycin (Azithromycin) 250 Mg Tablet, 250 MG PO AD for cough for 5 Days, #6 TAB Prov:JOE KAUR MD 07/18/24 Benzonatate (Benzonatate) 200 Mg Capsule, 200 MG PO TID PRN for COUGH for 14 Days, #42 CAP Prov:ELINA CHASE V [facility] 06/27/23 Cephalexin Monohydrate (Keflex) 500 Mg Cap, 500 MG PO TID for 7 Days, #21 CAP Prov:ELINA CHASE V [facility] 06/27/23 Reported Medications Insulin Degludec (Tresiba Flextouch U-200) 200 Unit/1 Ml Insuln.pen, 34 UNIT SQ DAILYBKFST, SYRINGE 04/04/21 Lisinopril (Lisinopril) 5 Mg Tablet, 5 MG PO DAILY, TAB 04/04/21 Simvastatin (Simvastatin) 5 Mg Tablet, 5 MG PO HS, TAB 04/04/21 Oxybutynin Chloride (Oxybutynin Chloride ER) 10 Mg Tab.er.24, 10 MG PO DAILY 04/04/21 Metformin HCl (Metformin HCl ER) 1,000 Mg Tab.er.24, 1000 MG PO BID 05/21/15 Acetaminophen (Tylenol Extra Strength) 500 Mg Tablet, 500 MG PO BID, TAB 05/20/15 Past Medical History Past Medical History: Diabetes-Type II, Hypertension Past Surgical History: Hysterectomy, Cholecystectomy, Other Surgical History Other: LEFT HIP, BREAST CATARACT Family History Family History: Negative Social History Social History: Negative, Lives with family Female( History) History: Not Applicable ROS Dictation CONSTITUTIONAL: Negative except for HPI HEAD/FACE: Negative except for HPI EENT: Negative except for HPI RESPIRATORY: Negative except for HPI GASTROINTESTINAL/ABDOMINAL: Negative except for HPI GENITOURINARY: Negative except for HPI MUSCULOSKELETAL: Negative except for HPI INTEGUMENTARY: Negative except for HPI NEUROLOGICAL/PSYCH: Negative except for HPI HEMATOLOGIC/LYMPHATIC: Negative except for HPI All Systems Negative, Except as noted above. 13 point review of systems assessed and all negative except for above. Physical Exam Physical Exam Dictation Vital Signs reviewed General Appearance: Alert, oriented x 3, no acute distress, well developed, nourished. Head and Face: non-traumatic. Eyes: PERRL, pink conjunctivas, eyelid no trauma, anterior chamber with arcus senilis. Ears: Pinnas intact and no signs of trauma or erythema ear canals clear and no discharge TM no erythema Nose: No discharge, no bleeding. Oropharynx: Mouth normal, tongue pink, pharynx clear,no erythema, tonsils no exudates, no abscesses noted, mucous membrane moist Neck: Supple, non-tender, no thyromegaly, no masses, no JVD, no bruits Breast:Deferred Chest: Tenderness to the left lateral chest wall, no crepitus, no paradoxical movement, no retractions Lungs:Clear, well-ventilated, symmetric, no rales, no wheezing, no rhonchi, no stridor, good breath sounds bilaterally Heart: Regular rate, regular rhythm, no murmur, no gallops Vascular: no peripheral edema, Abdomen: Soft, positive bowel sounds, nondistended, no guarding, nontender, no rebound, no masses no hepatomegaly, no splenomegaly, no Muhammad's sign, no hernias. Rectal: Deferred Genital: Deferred Neurological: Normal speech, motor function intact, sensory function intact Musculoskeletal: Neck nontender, full range of motion, back nontender, full range of motion, Extremities: nontender, full range of motion Skin: Color pink, dry, no turgor, no rash, no lacerations, no abrasions, no contusions. Lymphatic: Deferred MDM MDM: The patient is a 73-year-old female presenting to the emergency department following a mechanical ground level fall that occurred approximately 1 hour prior to arrival. Patient reports slipping and falling onto water. She reports landing on her left side. She does report hitting the left side of her head. Her main concern is that she was having left-sided chest wall pain. The pain is worse with deep inspiration. Denies any other symptoms. Denies being on any blood thinners. On physical examination the patient is in no acute respiratory distress. Initial vital signs are stable. She was tenderness over the left lateral chest wall but breath sounds are clear to auscultation. She has a GCS of 15. She has a contusion to the left hinduism. A CT scan of the head, chest abdomen and pelvis was performed to rule out any acute injury. CT head is negative. CT chest abdomen pelvis reveals a slightly displaced left 7th rib fracture. The patient was given a [place] in the emergency department. Imaging results were discussed with both patient and her daughter. The patient was sent home with spirometry to prevent a pneumonia. Differential diagnosis: Rib fracture, closed head injury, hip fracture There are no social concerns with this patient. Prescription drug management Prescriptions will include: None Medical management and examination interpretation discussions were had by me with other qualified healthcare professionals as indicated for the patient's care. ED Course Orders Procedure Category Date Status Time Ct Head/Brain W/O CT 09/24/24 Resulted Contrast 20:31 Ct Chest/Abd/Pelv W/O CT 09/24/24 Resulted Contrast 20:31 *Nursing CPOE 09/24/24 Transmitted Communication: 21:55 Cv Rt Incentive CPOE 09/24/24 Transmitted Spirometry 22:05 Hydrocodone/Apap PHA 09/24/24 In Process 5/325 ([place] 5/325mg) 22:30 Current Medications Medications (Trade) Dose Ordered Sig/Sandie Route PRN Reason Start Time Stop Time Status Last Admin Dose Admin Acetaminophen/ Hydrocodone Bitart (NORco 5/325MG) 1 tab ONCE ONCE PO 09/24/24 22:30 09/24/24 22:31 Vital Signs Date Time Temp Pulse Resp B/P (MAP) Pulse Ox O2 Delivery O2 Flow Rate FiO2 09/24/24 22:02 98.2 70 20 175/74 96 Room Air* 0 21 09/24/24 20:11 98.2 70 20 175/74 96 Room Air [facility] [address] [place] [address] IMAGING REPORT Signed PATIENT: ACE TAYLOR MR#: [id number] : 1950 SEX: F AGE: 73 LOCATION: [facility] ORDER 31 STATUS: REG REPORT#: [id number] SERVICE 30 REASON: fall/headinjury/left rib pain/left hip pain ORDERING PHYSICIAN: NICOLE ABREU PROCEDURE: HEAD WO - CT HEAD/BRAIN W/O CONTRAST CT HEAD WITHOUT CONTRAST INDICATION: Fall TECHNIQUE: Noncontrast axial helical CT images from the vertex through the skull base using 5 mm slice thickness without contrast material. Coronal and sagittal reconstructions were also included. Dose reduction techniques was used using integrated, automated and adaptive dose reduction exposure control. CT was performed with one or more of the following dose reduction techniques: Automated exposure control, adjustment of the mA and/or kV according to patient size, or use of iterative reconstruction technique. COMPARISON: None FINDINGS: Scattered and coalescent subcortical and periventricular white matter low attenuating areas likely represent residual of chronic small vessel arteriopathy and/or remote vascular insult. Generalized mild cerebral cortical atrophy is present.. No evidence for abnormal extra-axial fluid collections or masses. The ventricles and sulci are normal in size and configuration. No evidence for intracranial parenchymal, epidural, or subdural hemorrhage, mass effect or midline shift. The mooney-white matter differentiation is well preserved. No secondary evidence to suggest acute ischemia. Mild calcific plaque is present along the dimas of the cavernous segments of both internal carotid arteries. The brainstem and cerebellum appear normal. The visualized orbits appear unremarkable. The visible paranasal sinuses and mastoid air cells are clear. The calvarium appears normal. IMPRESSION: Chronic white matter ischemic changes, mild brain atrophy, and arteriosclerotic disease as described, without acute component. DICTATED BY: JETHRO FORTUNE MD DATE: 09/24/242125 ELECTRONICALLY SIGNED BY: JETHRO FORTUNE MD DATE: 09/24/242129 [place] [address] [place] [id number] IMAGING REPORT Signed PATIENT: ACE TAYLOR MR#: [id number] : 1950 SEX: F AGE: 73 LOCATION: [facility] ORDER 31 STATUS: REG [facility] REPORT#: [id number] SERVICE 30 REASON: fall/headinjury/left rib pain/left hip pain ORDERING PHYSICIAN: NICOLE ABREU PROCEDURE: CAP WO - CT CHEST/ABD/PELV W/O CONTRAST CT CHEST WITHOUT CONTRAST. CT ABDOMEN WITHOUT CONTRAST. CT PELVIS WITHOUT CONTRAST INDICATION: Left rib and hip pain TECHNIQUE: Routine 5 mm thick axial images were acquired from the thoracic inlet through the pelvis without contrast. CT was performed with one or more of the following dose reduction techniques: Automated exposure control, adjustment of the mA and/or kV according to patient size, or use of iterative reconstruction technique. COMPARISON: None FINDINGS: CT CHEST: A few calcific nodules within the left greater than right breast. The heart size is normal. Coronary arterial wall calcific plaque noted. No pericardial effusion noted. Mild calcific plaque is present along the aortic arch and thoracic aortic dimas without aneurysmal dilation. The trachea and airways are patent. No evidence for pulmonary nodule, consolidation, cavitary lesion, or other abnormal pulmonary parenchymal opacity. No axillary, hilar, or mediastinal lymphadenopathy. No pleural effusion or pneumothorax identified. Slightly displaced lateral left seventh rib fracture. Right ribs and sternum are intact. CT ABDOMEN: The liver is normal in size and smooth in contour without biliary duct dilation. The spleen is normal in size.. The gallbladder his absent. The pancreas appears normal without pancreatic duct dilation. The adrenal glands appear normal. Right kidney appears normal. 4.2 cm simple left renal cyst. No evidence for intra-abdominal free air or free or organized fluid collection. Mild calcific plaque is noted along the abdominal aortic and iliac vessel dimas without aneurysmal dilation. CT PELVIS: Streak artifact from total left hip prosthesis. No evidence for free air or free or organized pelvic fluid collection. No significant pelvic adenopathy detected. Moderate stool burden. Terminal ileum also appears normal. The appendix appears normal. The urinary bladder appears unremarkable. Visible osseous structures are intact. IMPRESSION: Slightly displaced lateral left seventh rib fracture without evidence for left hip fracture. A few calcific nodules within the left greater than right breast. Arteriosclerotic disease as described. DICTATED BY: JETHRO FORTUNE MD DATE: 09/24/242126 ELECTRONICALLY SIGNED BY: JETHRO FORTUNE MD DATE: 09/24/242135 DX & DISP Disposition: Discharge Departure Impression: Primary Impression: Left rib fracture Additional Impression: Ground-level fall Condition: Stable Additional Instructions: Your CT scan of the head does not show any acute intracranial abnormality. Your CT scan of the chest reveals a left 7th rib fracture. I have sent you home with incentive spirometry. These are breathing exercises that should help prevent a pneumonia Follow up with your PCP in 2-3 days. Referrals: DANA WALTON MD (PCP) Time of Disposition: 21:55 I have reviewed the case, and I agree with, Diagnosis and Plan I performed the substantive portion of the visit. I have reviewed and personally made and approve the management plan that is documented in the note by myself or the SOFÍA. I acknowledge for responsibility for the patient's management plan. NICOLE ABREU Sep 24, 2024 21:57
[2024-09-24 22:02] VITALS: BP 175/74; PULSE 70; RESP 20; TEMP 98.3; O2SAT 96
[2024-09-24] MEDS: HYDROcodone/APAP 5/325 1 TAB TABLET PO ONE (22:29)
== END 2024-09-24 22:31 | disposition home or self-care (01) ==
LOC: EDH 20:09
DX: S22.32XA Fracture of one rib, left side, initial encounter for closed fracture (principal); E11.9 Type 2 diabetes mellitus without complications; I10 Essential (primary) hypertension; Z79.84 Long term (current) use of oral hypoglycemic drugs; Z79.899 Other long term (current) drug therapy; Z88.0 Allergy status to penicillin; Z90.49 Acquired absence of other specified parts of digestive tract; Z90.710 Acquired absence of both cervix and uterus; W01.0XXA Fall on same level from slipping, tripping and stumbling without subsequent striking against object, initial encounter; Y93.89 Activity, other specified; Y92.89 Other specified places as the place of occurrence of the external cause; Y99.8 Other external cause status
CPT/HCPCS: 70450; 71250; 74176; 99284

== ENCOUNTER → 2024-10-12 | Outpatient (CLI) | payer OTHER ==
--- NOTE | 2024-10-12 11:51 | HMCIMG ---
LEFT HIP, INCLUDING AP PELVIS, RADIOGRAPHS - 3 VIEWS INDICATION: Left hip pain COMPARISON: None FINDINGS: AP and abduction views of the left hip and single AP view of the pelvis. No acute fracture or subluxation identified. Right femoral head is well formed without osteochondral erosion or radiographic evidence for avascular necrosis. Left hip hemiarthroplasty hardware appears normal without loosening or infection. Mild calcific plaque along the inflow and outflow arterial dimas. IMPRESSION: No evidence for fracture or hardware complication.
== END | disposition home or self-care (01) ==
LOC: RAH 11:05
PROVIDERS: ATTEND Family Medicine
DX: M25.552 Pain in left hip (principal); I70.90 Unspecified atherosclerosis
CPT/HCPCS: 73502

== ENCOUNTER → 2024-12-06 | Outpatient (CLI) | payer OTHER ==
--- NOTE | 2024-12-06 15:07 | HMCIMG ---
BONE DENSITOMETRY: HISTORY: Age-related osteoporosis without current pathological fracture Comparison: none FINDINGS: BMD measured at AP spine L1-L4 is 0.846 g/cm2 with a T-score of -1.8 Bone density is between 10 and 25% below young normal. This patient is considered osteopenic. Fracture risk is moderate. BMD measured at Left distal forearm is 0.556 g/cm2 with a T-score of -2.3 Bone density is between 10 and 25% below young normal. This patient is considered osteopenic. Fracture risk is moderate. IMPRESSION: Osteopenia. Treatment and follow-up recommended.
== END | disposition home or self-care (01) ==
LOC: RAH 13:36
PROVIDERS: ATTEND Family Medicine
DX: M85.89 Other specified disorders of bone density and structure, multiple sites (principal); M81.0 Age-related osteoporosis without current pathological fracture
CPT/HCPCS: 77080

== ENCOUNTER 2025-05-04 09:27 | Emergency (ER) | payer OTHER, MEDICARE ==
[~2025-05-04] VITALS: Ht 154.9 cm; Wt 72.6 kg
[2025-05-04 09:29] VITALS: TEMP 98.4
--- NOTE | 2025-05-04 11:09 | ERN ---
ED Note History of Present Illness Stated Complaint: PAIN TO LEFT HIP, LEFT ELBOW AND RIGHT ANKLE, FALL Chief Complaint: Other Problems Time Seen by MD: 09:40 Dictation: 74-year-old female presents to emergency department with mechanical fall left hip pain and left elbow pain. Patient also reports she sprained her right ankle has been ambulating no head injury. Allergies: Coded Allergies: No Known Drug Allergies (Unverified Allergy, Unknown, 04/03/21) Penicillins (Unverified Allergy, Unknown, 07/18/24) Uncoded Allergies: NKDA (Allergy, Unknown, 05/19/15) Home Meds Active Scripts Albuterol Sulfate (Ventolin Hfa/Proventil Hfa/Proair Hfa) 90 Mcg Puff, 1-2 PUFF IH Q4H PRN for SHORTNESS OF BREATH for 5 Days, #1 INH 0 Refills PHARMACY TO DISPENSE 1 INHALER FOR USE Prov:JOE KAUR MD 07/18/24 Azithromycin (Azithromycin) 250 Mg Tablet, 250 MG PO AD for cough for 5 Days, #6 TAB Prov:JOE KAUR MD 07/18/24 Benzonatate (Benzonatate) 200 Mg Capsule, 200 MG PO TID PRN for COUGH for 14 Days, #42 CAP Prov:ELINA CHASE V [employer] 06/27/23 Cephalexin Monohydrate (Keflex) 500 Mg Cap, 500 MG PO TID for 7 Days, #21 CAP Prov:ELINA CHASE V [employer] 06/27/23 Reported Medications Insulin Degludec (Tresiba Flextouch U-200) 200 Unit/1 Ml Insuln.pen, 34 UNIT SQ DAILYBKFST, SYRINGE 04/04/21 Lisinopril (Lisinopril) 5 Mg Tablet, 5 MG PO DAILY, TAB 04/04/21 Simvastatin (Simvastatin) 5 Mg Tablet, 5 MG PO HS, TAB 04/04/21 Oxybutynin Chloride (Oxybutynin Chloride ER) 10 Mg Tab.er.24, 10 MG PO DAILY 04/04/21 Metformin HCl (Metformin HCl ER) 1,000 Mg Tab.er.24, 1000 MG PO BID 05/21/15 Acetaminophen (Tylenol Extra Strength) 500 Mg Tablet, 500 MG PO BID, TAB 05/20/15 Past Medical History Past Medical History: Diabetes-Type II, Hypertension Surgical History: Hysterectomy, Cholecystectomy, Other Surgical History Other: LEFT HIP, BREAST CATARACT Family History: Negative Social History: Negative, Lives with family History: Not Applicable Review of System Dictation Constitutional: Negative for fever,chills, and weight loss Eyes: Negative for injury, pain,redness, and discharge ENT: Negative for injury,pain or swelling Cardiovascular: Negative for chest pain, palpitations, and edema Respiratory: Negative for shortness of breath, cough, and wheezing, Abdomen/GI: Negative for abdominal pain, nausea, vomiting, diarrhea, and constipation Back: Negative for injury and pain : Negative for injury, bleeding and discharge MS/Extremity: Per HPI Skin: Per HPI Neuro: Negative for headache, weakness, numbness, tingling, and seizure Psych: Negative for suicide ideation, homicidal ideation, and hallucinations Initial Vital Sign VS Vital Signs Date Time Temp Pulse Resp B/P (MAP) Pulse Ox O2 Delivery O2 Flow Rate FiO2 05/04/25 09:29 98.4 80 16 146/67 97 Room Air 05/04/25 11:17 0 21 Physical Exam Dictation General: awake, alert, NAD Head/Face: Normocephalic, atraumatic Eyes: PERRL, EOMI, vision at baseline ENT: oral cavity clear, TMs clear, no signs of infection Neck: Trachea midline, supple, no nuchal rigidity Cardiovascular: RRR, normal S1/S2, No MRGs, no JVD Respiratory: CTAB, no respiratory distress, No rales or wheezes Abdomen: Soft, non-tender, non-distended, normal bowel sounds, no guarding or rebound. Skin: Warm, dry, normal turgor, no rash MS/Extremity: Pulses equal, no cyanosis, neurovascular intact, FROM the, abrasion to left elbow, mild tenderness to left hip area full range of motion Neuro: COAx4, GCS 15, strength 5/5, CN 2-12 intact, normal cerebellar exam, normal gait, Psych: Normal behavior, mood, and affect normal0 ED Course ED Course Orders Procedure Category Date Status Time Hip Unilat 2-3vw Left RAD 05/04/25 Resulted 09:41 Elbow 2vws Lt RAD 05/04/25 Resulted 09:41 Ankle 2vws Rt RAD 05/04/25 Resulted 09:42 Ct Head/Brain W/O CT 05/04/25 Resulted Contrast 10:25 Ct Pelvis W/O Contrast CT 05/04/25 Resulted 10:25 Ketorolac PHA 05/04/25 Complete Tromethamine 15mg/Ml 11:09 Current Medications Medications (Trade) Dose Ordered Sig/Sandie Route PRN Reason Start Time Stop Time Status Last Admin Dose Admin Ketorolac Tromethamine (toRADol) 15 mg ONCE STAT IM 05/04/25 11:09 05/04/25 11:11 DC 05/04/25 11:17 Vital Signs Date Time Temp Pulse Resp B/P (MAP) Pulse Ox O2 Delivery O2 Flow Rate FiO2 05/04/25 12:58 67 16 164/78 98 Room Air* 0 21 05/04/25 11:17 64 16 164/79 99 Room Air* 0 21 05/04/25 09:29 98.4 80 16 146/67 97 Room Air Medical Decision Making MDM MDM: Differential diagnosis: Rationale: Tests considered and ordered secondary to shared decision making include: Previous outside records reviewed: Old ER visits. Risk of complication and/or morbidity or mortality of patient management: None Medications-Per medication reconciliation Need for hospitalization: Patient does not meet criteria for hospitalization. Need for emergency major/minor surgery: No There are no social concerns with this patient. Prescription drug management Prescriptions will include symptomatic care Patient's prior external medical records from other ER visits were reviewed by me as indicated. Prior testing and results from previous visits were reviewed. Prior tests were taken into account with medical decision making and resource utilization, independent historian/historians were used to obtain complete medical history. I independently interpreted the test that were performed, results were reviewed by me and considered findings on radiology if ordered. Medical management and examination interpretation discussions were had by me with other qualified healthcare professionals as indicated for the patient's care. 74-year-old female ground level fall x-rays and CT scans negative stable for discharge. DX & DISP Disposition: Discharge Departure Impression: Primary Impression: Ground-level fall Additional Impression: Contusion of left hip Condition: Stable Referrals: DANA WALTON MD (PCP) JOE KAUR MD May 04, 2025 11:09
--- NOTE | 2025-05-04 11:18 | HMCIMG ---
EXAM: CR Left Hip and AP pelvis, 3 View CLINICAL HISTORY: Injury. COMPARISON: None provided. FINDINGS: BONES: Left total hip arthroplasty in situ with intact alignment. No periprosthetic lucency, fracture, or hardware-related complication. Visualized bony structures appear intact. JOINTS: Left hip prosthesis well seated. No dislocation. Mild degenerative osteoarthritic changes noted in the [place] right hip joint with marginal osteophyte formation and mild joint space narrowing. SOFT TISSUES: Periprosthetic and surrounding soft tissues appear unremarkable. No abnormal calcifications or soft tissue swelling. IMPRESSION: * Left total hip arthroplasty in anatomic alignment without hardware-related complication or periprosthetic abnormality. 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 * No acute fracture or dislocation. /[place]
--- NOTE | 2025-05-04 11:26 | HMCIMG ---
EXAM: CR right ankle, 3 View. CLINICAL HISTORY: injury COMPARISON: None provided. FINDINGS: BONES: No acute fracture or aggressive appearing osseous lesion. JOINTS: The joint spaces appear within normal limits. No dislocation. No radiographic evidence of a joint effusion. SOFT TISSUES: The soft tissues are unremarkable. IMPRESSION: No acute osseous abnormality. /[place]
--- NOTE | 2025-05-04 11:35 | HMCIMG ---
EXAM: CR left elbow, 2 View. CLINICAL HISTORY: injury COMPARISON: None provided. FINDINGS: BONES: No acute fracture or aggressive appearing osseous lesion. JOINTS: The joint spaces appear within normal limits. No dislocation. No radiographic evidence of a joint effusion. SOFT TISSUES: The soft tissues are unremarkable. IMPRESSION: No acute osseous abnormality. /[place]
--- NOTE | 2025-05-04 11:59 | HMCIMG ---
EXAM: CT BRAIN WITHOUT INTRAVENOUS CONTRAST Technique: Axial computed tomography of the brain with coronal and sagittal reformations; dose reduction per ALARA. CTDIvol 49.30 mGy; DLP 871.60 mGy???cm. Contrast: No intravenous contrast administered. Clinical Information: Fall. Comparison: None Findings: Brain: Normal parenchymal attenuation without acute intracranial hemorrhage, mass effect, or acute territorial infarct; scattered hypodensities in the bilateral periventricular and subcortical white matter most compatible with chronic small vessel ischemic change; mooney???white matter differentiation preserved. Ventricles and extra-axial spaces: Ventricular size and configuration within expected limits for age; prominence of sulci, basal cisterns, and sylvian fissures consistent with age-related cerebral volume loss; no extra-axial fluid collection; no midline shift. Skull and extracranial soft tissues: Skull base and calvarium without acute osseous abnormality; extracranial soft tissues unremarkable. Orbits: Intraorbital contents unremarkable. Paranasal sinuses and mastoid air cells: Visualized paranasal sinuses are clear; mastoid air cells unremarkable. Impression: * No acute intracranial abnormality. * Chronic microvascular ischemic changes of the cerebral white matter. * Age-related cerebral volume loss. /[place]
--- NOTE | 2025-05-04 12:00 | HMCIMG ---
EXAM: CT PELVIS WITHOUT INTRAVENOUS CONTRAST Technique: Helical computed tomography of the pelvis with thin-section axial images and coronal/sagittal reformations; dose reduction per ALARA. Contrast: No intravenous contrast administered. Clinical Information: Fall. Comparison: None Findings: Pelvic organs: Urinary bladder normal in contour and wall thickness; no pelvic free fluid or focal collection. Sacroiliac joints: Bilateral sacroiliitis manifested by joint space narrowing and intrarticular vacuum phenomenon; no erosive changes or ankylosis identified. Osseous structures: Mild osteopenia; left total hip arthroplasty in expected position without periprosthetic fracture or hardware complication; degenerative changes of the lower lumbar spine; no acute pelvic ring fracture or dislocation. Vasculature: Mild atherosclerotic calcifications of the abdominal aorta and bilateral iliac arteries without aneurysmal dilatation. Soft tissues: No focal soft-tissue hematoma or subcutaneous emphysema identified. Impression: * Bilateral sacroiliitis with joint space narrowing and vacuum phenomenon, compatible with degenerative sacroiliac arthropathy; correlate with clinical symptoms and consider rheumatologic evaluation if inflammatory sacroiliitis is suspected. * Left hip arthroplasty without acute periprosthetic complication. * Mild osteopenia and degenerative changes of the lower lumbar spine. * Mild aortoiliac atherosclerosis. No acute pelvic fracture or visceral pelvic injury identified. /[place]
[2025-05-04 12:58] VITALS: BP 164/78; PULSE 67; RESP 16; O2SAT 98
== END 2025-05-04 13:27 | disposition home or self-care (01) ==
LOC: EDH 09:27
DX: S70.02XA Contusion of left hip, initial encounter (principal); S50.312A Abrasion of left elbow, initial encounter; E11.9 Type 2 diabetes mellitus without complications; I10 Essential (primary) hypertension; Z88.0 Allergy status to penicillin; Z79.899 Other long term (current) drug therapy; Z90.49 Acquired absence of other specified parts of digestive tract; Z79.84 Long term (current) use of oral hypoglycemic drugs; Z90.710 Acquired absence of both cervix and uterus; W19.XXXA Unspecified fall, initial encounter; Y93.89 Activity, other specified; Y92.89 Other specified places as the place of occurrence of the external cause; Y99.8 Other external cause status
CPT/HCPCS: 99285; 70450; 73600; 73070; 73502; 72192; 96372; J1885